=== PATIENT | female | born 1965 | race Caucasian/White ===

== ENCOUNTER 2020-05-18 19:10 | Emergency (ER) | payer BC ==
--- NOTE | 2020-05-18 19:51 | EDM.PDOC ---
ED HPI GENERAL MEDICAL PROBLEM - General Chief Complaint: Chest Pain Stated Complaint: CHEST PAIN Time Seen by Provider: 05/18/20 19:35 Source of Information: Reports: Patient History Limitations: Reports: No Limitations - History of Present Illness INITIAL COMMENTS - FREE TEXT/NARRATIVE: 55-year-old white female that presents with left-sided chest pain patient states just about the left upper breast. That is been going on for about 3 days now. She states the pain comes on for about 5 minutes with certain movements goes up from a 0 to an 8 out of 10 thing is completely goes away after about 5 minutes with rest. She states no change in position makes it worse or better She states pain radiates into her left shoulder blade. She describes it as a sharp stabbing. She denies any shortness of breath nausea vomiting dizziness or lightheadedness or sweating when it occurs She has no family history of coronary artery disease she does not have any risk factors no hypertension no diabetes no hyperlipidemia non-smoker States she has been doing fine eating drinking as normal with normal daily activities Duration: Day(s): Location: Reports: Chest Quality: Reports: Burning, Stabbing Severity: Severe Improves with: Reports: Rest Worsens with: Reports: Movement Associated Symptoms: Reports: Chest Pain. Denies: Confusion, Cough, cough w sputum, Diaphoresis, Fever/Chills, Headaches, Loss of Appetite, Malaise, Nausea/Vomiting, Seizure, Shortness of Breath, Syncope, Weakness Right side of chest through to the back Pain Score (Numeric/FACES): 5 - Related Data Allergies Allergy/AdvReac Type Severity Reaction Status Date / Time No Known Allergies Allergy Verified 05/18/20 19:51 Home Meds: Home Meds . [No Known Home Meds] 05/18/20 [History] ED ROS GENERAL - Review of Systems Review Of Systems: See Below Constitutional: Reports: No Symptoms HEENT: Reports: No Symptoms Respiratory: Reports: No Symptoms Cardiovascular: Reports: Chest Pain. Denies: No Symptoms, Blood Pressure Problem, Claudication, Dyspnea on Exertion, Edema, Lightheadedness, Orthopnea, Palpitations, PND, Syncope Endocrine: Reports: No Symptoms GI/Abdominal: Reports: No Symptoms : Reports: No Symptoms Musculoskeletal: Reports: No Symptoms Skin: Reports: No Symptoms Neurological: Reports: No Symptoms Psychiatric: Reports: No Symptoms Hematologic/Lymphatic: Reports: No Symptoms Immunologic: Reports: No Symptoms ED EXAM, GENERAL - Physical Exam Exam: See Below Exam Limited By: No Limitations General Appearance: Alert, WD/WN, No Apparent Distress Eye Exam: Bilateral Eye: EOMI, Normal Inspection Nose: Normal Inspection, Normal Mucosa Throat/Mouth: Normal Inspection, Normal Lips, Normal Teeth, Normal Gums, Normal Oropharynx, Normal Voice, No Airway Compromise Neck: Normal Inspection, Supple, Non-Tender, Full Range of Motion Respiratory/Chest: No Respiratory Distress, Lungs Clear, Normal Breath Sounds, No Accessory Muscle Use, Other (Positive tenderness palpation over the left lateral ribs with reproduction of the exact same type of pain per the patient when palpated between the costal margins). No: Chest Non-Tender Cardiovascular: Normal Peripheral Pulses, Regular Rate, Rhythm, No Edema, No Gallop, No JVD, No Murmur, No Rub GI/Abdominal: Normal Bowel Sounds, Soft, Non-Tender, No Organomegaly, No Distention, No Abnormal Bruit Back Exam: Normal Inspection, Full Range of Motion. No: Vertebral Tenderness Extremities: Normal Inspection, Normal Range of Motion, Non-Tender, No Pedal Edema, Normal Capillary Refill Neurological: Alert, Oriented, CN II-XII Intact, Normal Cognition, Normal Gait, Normal Reflexes, No Motor/Sensory Deficits Psychiatric: Normal Affect, Normal Mood Skin Exam: Warm, Dry, Intact, Normal Color, No Rash Lymphatic: No Adenopathy Course - Vital Signs Text/Narrative:: EKG normal sinus rhythm no acute findings patient is noted to be in no acute distress laughing during exam CBC BMP troponin EKG chest x-ray All labs are normal chest x-ray is negative We will give the patient 30 mg Toradol IV patient states she feels fine going home states she will follow-up with her primary care provider if changes she will return to the emergency room Patient was rechecked states she feels much better after the Toradol she is okay with disposition going home and follow-up Last Recorded V/S: Last Vital Signs Temp 36.6 C 05/18/20 20:01 Pulse 68 05/18/20 20:01 Resp 16 05/18/20 20:01 BP 139/79 05/18/20 20:01 Pulse Ox 97 05/18/20 20:01 - Orders/Labs/Meds Orders: Active Orders 24 hr Category Date Time Status Chest 1V Frontal [CR] Stat Exams 05/18/20 19:39 Taken Labs: Laboratory Tests 05/18/20 05/18/20 05/18/20 Range/Units 19:30 19:30 19:55 WBC 6.6 (4.0-10.0) x10^3/uL RBC 3.57 L (4.00-5.50) x10^6/uL Hgb 11.4 L (12.0-16.0) g/dL Hct 34.0 (33.0-47.0) % MCV 95.2 H (78.0-93.0) fL MCH 31.9 (26.0-32.0) pg MCHC 33.5 (32.0-36.0) g/dL RDW Coeff of Mikayla 12.3 (10.0-15.0) % Plt Count 187 (130-400) x10^3/uL Neut % (Auto) 59.1 (50.0-80.0) % Lymph % (Auto) 31.2 (25.0-50.0) % [place] % (Auto) 8.3 (2.0-11.0) % Eos % (Auto) 1.1 (0.0-4.0) % Baso % (Auto) 0.3 (0.2-1.2) % Sodium 141 (136-145) mmol/L Potassium 3.7 (3.5-5.1) mmol/L Chloride 103 (98-107) mmol/L Carbon Dioxide 27 (21-32) mmol/L Anion Gap 14.7 (10-20) mmol/L BUN 17 (7-18) mg/dL Creatinine 0.9 (0.55-1.02) mg/dL Est Cr Clr Drug Dosing TNP Estimated GFR (MDRD) > 60 Glucose 91 (74-106) mg/dL Calcium 8.7 (8.5-10.1) mg/dL POC Troponin I 0.01 (0.00-0.08) ng/mL Meds: Medications Discontinued Medications Generic Name Dose Route Start Last Admin Trade Name Freq PRN Reason Stop Dose Admin Ketorolac Tromethamine 30 mg 05/18/20 20:49 05/18/20 20:54 Toradol IVPUSH 05/18/20 20:50 30 mg ONETIME ONE Administration Departure - Departure Time of Disposition: 20:50 Disposition: Home, Self-Care 01 Condition: Good Clinical Impression: Non-cardiac chest pain Instructions: Nonspecific Chest Pain, Adult, [id number] Referrals: PCP,Unknown [Primary Care Provider] - Forms: ED Department Discharge Additional Instructions: Follow-up with your primary care provider in the next 24 to 48 hours Return to the emergency room if anything changes or gets worse Sepsis Event Note (ED) - Focused Exam Vital Signs: Vital Signs Temp Pulse Resp BP Pulse Ox 05/18/20 20:01 36.6 C 68 16 139/79 97 - Problem List & Annotations (1) Non-cardiac chest pain SNOMED Code(s): 902795270 Code(s): R07.89 - OTHER CHEST PAIN Status: Acute Current Visit: Yes - My Orders Last 24 Hours: My Active Orders 05/18/20 19:39 Chest 1V Frontal [CR] Stat - Assessment/Plan Last 24 Hours: My Active Orders 05/18/20 19:39 Chest 1V Frontal [CR] Stat
[2020-05-18 20:07] LABS: ANION GAP 14.7 mmol/L (10-20); CHLORIDE,CL 103 mmol/L (98-107); SODIUM,NA 141 mmol/L (136-145)
[2020-05-18] MEDS ORDERED: Ketorolac 30 MG/ML SDV IVPUSH ONE (20:49)
--- NOTE | 2020-05-19 08:03 | CR ---
[id number] RAD/RAD Chest PA or AP 1V EXAM: SINGLE VIEW CHEST. INDICATION: CHEST PAIN FEVER COMPARISON: NO PREVIOUS SIMILAR EXAM IS AVAILABLE FINDINGS: The lungs are clear The cardiomediastinal contour is normal IMPRESSION: NO PNEUMONIA Ezra Matute MD 05/19/20 0801 Thank you for allowing us to participate in the care of your patient.
== END 2020-05-18 21:45 | disposition home or self-care (01) ==
LOC: SUPCPDRO 19:10 → VM.ED 19:10
DX: R07.89 Other chest pain (principal)
CPT/HCPCS: 71045; 80048; 84484; 85025; 93005; 96374; 99285; J1885

== ENCOUNTER 2020-11-28 17:39 | Emergency (ER) | payer OTHER, BC ==
[2020-11-28] MEDS ORDERED: Sodium Chloride 0.9% 10 ML Syringe FLUSH PRN (17:51)
--- NOTE | 2020-11-28 18:06 | EDM.PDOC ---
ED HPI GENERAL MEDICAL PROBLEM - General Chief Complaint: Chest Pain Stated Complaint: CHEST PAIN Time Seen by Provider: 11/28/20 17:50 Source of Information: Reports: Patient History Limitations: Reports: No Limitations - History of Present Illness INITIAL COMMENTS - FREE TEXT/NARRATIVE: Pt. presents to ER with complaints of respirophasic chest discomfort in area of L breast. States the discomfort is intermittent in nature, and radiates into L back/scapula area. No radiation into jaw, arms, or neck. Pt. has a history of this in the past and was seen in this ER in April for the same, diagnosed with what sounds like atypical chest pain. Cardiac workup was negative. Pt. States that she has been experiencing the discomfort for several days. She states it is worse with palpation of the chest. Pt. denies any cough. No chest congestion. No fever or chills. No nausea, vomiting, or diarrhea. No rashes. Denies any diaphoresis, palpitations, or lightheadedness. Denies any acute injury to the chest. Has not been near any ill contacts. Denies history of CAD, respiratory illness, smoking, hypertension, dyslipidemia. She is not on HRT. Denies any history of hypercoagulability or blood clots in the past. She does have a history of chronic back pain that she feels may be contributing to the discomfort. Identifies Grzegorz Ludwig PA-C as her PCP. She states that she took tylenol at approx. 11:00AM today which did not help. Onset Date: 11/25/20 Duration: Intermittent Location: Reports: Chest, Back Quality: Reports: Sharp Severity: Moderate Associated Symptoms: Reports: Chest Pain. Denies: Confusion, Cough, cough w sputum, Diaphoresis, Fever/Chills, Headaches, Loss of Appetite, Malaise, Nausea/Vomiting, Rash, Seizure, Shortness of Breath, Syncope, Weakness Treatments MANAGER INSTRUMENTATION: Reports: Acetaminophen Left Upper Chest Pain Score (Numeric/FACES): 7 - Related Data Allergies Allergy/AdvReac Type Severity Reaction Status Date / Time No Known Allergies Allergy Verified 11/28/20 17:44 Home Meds: Home Meds . [No Known Home Meds] 05/18/20 [History] Past Medical History - Past Surgical History GI Surgical History: Reports: Cholecystectomy Female Surgical History: Reports: Breast Reduction Musculoskeletal Surgical History: Reports: Shoulder Surgery, Other (See Below) Other Musculoskeletal Surgeries/Procedures:: Surgery to both a knee and a foot Social & Family History - Tobacco Use Tobacco Use Status *Q: Never Tobacco User - Recreational Drug Use Recreational Drug Use: No ED ROS GENERAL - Review of Systems Review Of Systems: See Below Constitutional: Reports: No Symptoms HEENT: Reports: No Symptoms Respiratory: Reports: Pleuritic Chest Pain Cardiovascular: Reports: Chest Pain. Denies: Claudication, Dyspnea on Exertion, Edema, Lightheadedness, Orthopnea, Palpitations, PND Endocrine: Reports: No Symptoms GI/Abdominal: Reports: No Symptoms : Reports: No Symptoms Musculoskeletal: Reports: Back Pain Skin: Reports: No Symptoms Neurological: Reports: No Symptoms Psychiatric: Reports: No Symptoms Hematologic/Lymphatic: Reports: No Symptoms Immunologic: Reports: No Symptoms ED EXAM, GENERAL - Physical Exam Exam: See Below Exam Limited By: No Limitations General Appearance: Alert, WD/WN, No Apparent Distress Throat/Mouth: Normal Inspection, Normal Lips, Normal Oropharynx, Normal Voice, No Airway Compromise Head: Atraumatic, Normocephalic Respiratory/Chest: No Respiratory Distress, Lungs Clear, No Accessory Muscle Use, Other (Pain reproducible with AP palpation/compression of the L anterior chest.) Cardiovascular: Normal Peripheral Pulses, Regular Rate, Rhythm, No Edema Peripheral Pulses: 4+: Radial (L) GI/Abdominal: Soft, Non-Tender, No Organomegaly, No Distention, No Mass (Female) Exam: Deferred Rectal (Female) Exam: Deferred Back Exam: Normal Inspection, Full Range of Motion Extremities: Normal Inspection, Normal Range of Motion, Non-Tender, No Pedal Epifanio ma, Normal Capillary Refill Neurological: Alert, Oriented, CN II-XII Intact, Normal Cognition, Normal Gait Psychiatric: Normal Affect, Normal Mood Skin Exam: Warm, Dry, Intact, Normal Color, No Rash Lymphatic: No Adenopathy Course - Vital Signs Last Recorded V/S: Last Vital Signs Temp 36.6 C 11/28/20 17:45 Pulse 64 11/28/20 18:45 Resp 16 11/28/20 18:45 BP 125/70 11/28/20 18:45 Pulse Ox 95 11/28/20 18:45 - Orders/Labs/Meds Orders: Active Orders 24 hr Category Date Time Status EKG Documentation Completion [RC] STAT Care 11/28/20 17:51 Active PE Chest [Ang Chest] [CT] Stat Exams 11/28/20 18:37 Taken CORONAVIRUS COVID-19 PCR PHL Stat Lab 11/28/20 18:11 Ordered Sodium Chloride 0.9% [Saline Flush] Med 11/28/20 17:51 Active 10 ml FLUSH ASDIRECTED PRN Peripheral IV Insertion Adult [OM.PC] Routine Oth 11/28/20 17:52 Ordered Medication Orders Sodium Chloride (Saline Flush) 10 ml FLUSH ASDIRECTED PRN PRN Reason: Keep Vein Open Labs: Laboratory Tests 11/28/20 11/28/20 11/28/20 Range/Units 17:57 18:06 18:06 WBC 4.7 (4.0-10.0) x10^3/uL RBC 3.85 L (4.00-5.50) x10^6/uL Hgb 12.2 (12.0-16.0) g/dL Hct 36.3 (33.0-47.0) % MCV 94.3 H (78.0-93.0) fL MCH 31.7 (26.0-32.0) pg MCHC 33.6 (32.0-36.0) g/dL RDW Coeff of Mikayla 12.2 (10.0-15.0) % Plt Count 215 (130-400) x10^3/uL Neut % (Auto) 49.0 L (50.0-80.0) % Lymph % (Auto) 38.9 (25.0-50.0) % [place] % (Auto) 10.0 (2.0-11.0) % Eos % (Auto) 1.7 (0.0-4.0) % Baso % (Auto) 0.4 (0.2-1.2) % PT 11.0 (9.5-12.3) SEC INR 1.0 L (2.0-3.5) APTT 27.3 (25.6-32.8) SEC D-Dimer, Quantitative 0.74 H (<=0.58) mg/LFEU Sodium (136-145) mmol/L Potassium (3.5-5.1) mmol/L Chloride (98-107) mmol/L Carbon Dioxide (21-32) mmol/L Anion Gap (10-20) mmol/L BUN (7-18) mg/dL Creatinine (0.55-1.02) mg/dL Est Cr Clr Drug Dosing mL/min Estimated GFR (MDRD) Glucose (74-106) mg/dL Calcium (8.5-10.1) mg/dL Corrected Calcium (8.5-10.1) mg/dL Magnesium (1.8-2.4) mg/dL Total Bilirubin (0.2-1.0) mg/dL AST (15-37) U/L ALT (14-59) U/L Alkaline Phosphatase (46-116) U/L Troponin I (<=0.056) ng/mL C-Reactive Protein (<=0.9) mg/dL NT-Pro-B Natriuret Pep (<=125) pg/mL Total Protein (6.4-8.2) g/dL Albumin (3.4-5.0) g/dL Globulin Albumin/Globulin Ratio SARS CoV-2 RNA Rapid LARRY Negative (NEGATIVE) 11/28/20 Range/Units 18:06 WBC (4.0-10.0) x10^3/uL RBC (4.00-5.50) x10^6/uL Hgb (12.0-16.0) g/dL Hct (33.0-47.0) % MCV (78.0-93.0) fL MCH (26.0-32.0) pg MCHC (32.0-36.0) g/dL RDW Coeff of Mikayla (10.0-15.0) % Plt Count (130-400) x10^3/uL Neut % (Auto) (50.0-80.0) % Lymph % (Auto) (25.0-50.0) % [place] % (Auto) (2.0-11.0) % Eos % (Auto) (0.0-4.0) % Baso % (Auto) (0.2-1.2) % PT (9.5-12.3) SEC INR (2.0-3.5) APTT (25.6-32.8) SEC D-Dimer, Quantitative (<=0.58) mg/LFEU Sodium 142 (136-145) mmol/L Potassium 3.6 (3.5-5.1) mmol/L Chloride 105 (98-107) mmol/L Carbon Dioxide 27 (21-32) mmol/L Anion Gap 13.6 (10-20) mmol/L BUN 16 (7-18) mg/dL Creatinine 0.8 (0.55-1.02) mg/dL Est Cr Clr Drug Dosing 58.55 mL/min Estimated GFR (MDRD) > 60 Glucose 93 (74-106) mg/dL Calcium 8.6 (8.5-10.1) mg/dL Corrected Calcium 8.84 (8.5-10.1) mg/dL Magnesium 2.2 (1.8-2.4) mg/dL Total Bilirubin 0.3 (0.2-1.0) mg/dL AST 23 (15-37) U/L ALT 23 (14-59) U/L Alkaline Phosphatase 95 (46-116) U/L Troponin I < 0.017 (<=0.056) ng/mL C-Reactive Protein 0.3 (<=0.9) mg/dL NT-Pro-B Natriuret Pep 99 (<=125) pg/mL Total Protein 7.3 (6.4-8.2) g/dL Albumin 3.7 (3.4-5.0) g/dL Globulin 3.6 Albumin/Globulin Ratio 1.03 SARS CoV-2 RNA Rapid LARRY (NEGATIVE) Meds: Medications Generic Name Dose Route Start Last Admin Trade Name Richa PRN Reason Stop Dose Admin Sodium Chloride 10 ml 11/28/20 17:51 Saline Flush FLUSH ASDIRECTED PRN Keep Vein Open Discontinued Medications Generic Name Dose Route Start Last Admin Trade Name Richa PRN Reason Stop Dose Admin Doxycycline Monohydrate 1 packet 11/28/20 19:43 Take Home: Doxycycline 100 Mg, 4 Tab Pack PO 11/28/20 19:44 ONETIME ONE Iopamidol 100 ml 11/28/20 19:15 11/28/20 19:15 Isovue-300 (61%) IVPUSH 11/28/20 19:16 100 ml ONETIME ONE Administration Ketorolac Tromethamine 15 mg 11/28/20 19:42 Toradol IVPUSH 11/28/20 19:43 ONETIME ONE Methylprednisolone Sodium Succinate 125 mg 11/28/20 19:42 Solu-Medrol IVPUSH 11/28/20 19:43 ONETIME ONE - Radiology Interpretation Free Text/Narrative:: CTA chest obtained, negative for acute PE. Mild bilateral lower lobe groundglass opacities of unclear etiology. Departure - Departure Time of Disposition: 19:56 Disposition: Home, Self-Care 01 Clinical Impression: Atypical chest pain - Discharge Information Instructions: Doxycycline tablets or capsules, Nonspecific Chest Pain, Adult, [id number], Prednisone tablets, Probiotics Referrals: PCP,Not In Area [Primary Care Provider] - Forms: ED Department Discharge Additional Instructions: Doxycycline 100mg 1 twice daily for 10 days Prednisone 20mg 2 tabs daily for 5 days starting tomorrow. Drink plenty of fluids Ibuprofen 200mg 3 tabs every 6 hours as needed for pain Return to ER if increased shortness of breath. Recheck in clinic in 10-14 days Sepsis Event Note (ED) - Evaluation Sepsis Screening Result: No Definite Risk - Focused Exam Vital Signs: Vital Signs Temp Pulse Resp BP Pulse Ox 11/28/20 18:45 64 16 125/70 95 11/28/20 18:16 63 18 119/67 97 11/28/20 17:45 36.6 C 67 18 123/72 97 - Problem List Review Problem List Initiated/Reviewed/Updated: Yes - My Orders Last 24 Hours: My Active Orders 11/28/20 17:51 EKG Documentation Completion [RC] STAT Sodium Chloride 0.9% [Saline Flush] 10 ml FLUSH ASDIRECTED PRN 11/28/20 17:52 Peripheral IV Insertion Adult [OM.PC] Routine 11/28/20 18:11 CORONAVIRUS COVID-19 PCR PHL Stat 11/28/20 18:37 PE Chest [Ang Chest] [CT] Stat - Assessment/Plan Last 24 Hours: My Active Orders 11/28/20 17:51 EKG Documentation Completion [RC] STAT Sodium Chloride 0.9% [Saline Flush] 10 ml FLUSH ASDIRECTED PRN 11/28/20 17:52 Peripheral IV Insertion Adult [OM.PC] Routine 11/28/20 18:11 CORONAVIRUS COVID-19 PCR PHL Stat 11/28/20 18:37 PE Chest [Ang Chest] [CT] Stat Plan: Doxycycline 100mg 1 twice daily for 10 days Prednisone 20mg 2 tabs daily for 5 days starting tomorrow. Drink plenty of fluids Ibuprofen 200mg 3 tabs every 6 hours as needed for pain Return to ER if increased shortness of breath. Recheck in clinic in 10-14 days
[2020-11-28 18:33] LABS: PTT,PARTIAL THROMBOPLSTIN TIME 27.3 SEC (25.6-32.8)
[2020-11-28 18:38] LABS: CHLORIDE,CL 105 mmol/L (98-107); SODIUM,NA 142 mmol/L (136-145)
[2020-11-28 18:39] LABS: ANION GAP 13.6 mmol/L (10-20)
[2020-11-28] MEDS ORDERED: Iopamidol 612 MG/ML 100 ML Bottle IVPUSH ONE (19:15)
[2020-11-28] MEDS ORDERED: methylPREDNISolone Sodium Succinate 125 MG/2 ML SDV IVPUSH ONE (19:42)
[2020-11-28] MEDS ORDERED: Ketorolac 15 MG/ML SDV IVPUSH ONE (19:42)
[2020-11-28] MEDS ORDERED: Take Home: Doxycycline 100 MG Tab, 4 Tab Pack PO ONE (19:43)
--- NOTE | 2020-12-01 09:19 | CT ---
[id number] CT/CTA Chest EXAM: CT ANGIOGRAM CHEST INDICATION: CHEST PAIN/ POSITIVE D- DIMER COMPARISON: None. DISCUSSION: The pulmonary arteries are normal in appearance with no emboli identified. There are mild groundglass opacities scattered throughout both lungs which are most prominent in the lower lobes bilaterally. These findings could be from incomplete inspiration, edema, small airway disease or infection. Mild cardiomegaly. No effusions. No thoracic adenopathy. Prior cholecystectomy. Degenerative changes in the spine. IMPRESSION: 1. Negative for pulmonary embolism. 2. Mild bilateral lower lobe predominant groundglass opacities are nonspecific, but could be seen with small airway disease, incomplete inspiration, edema or infection. Sy Dupont MD 12/01/20 0918 Thank you for allowing us to participate in the care of your patient.
== END 2020-11-28 20:13 | disposition home or self-care (01) ==
LOC: VM.ED 17:39
DX: R07.89 Other chest pain (principal); Z20.822 Contact with and (suspected) exposure to COVID-19
CPT/HCPCS: 71275; 80053; 83735; 83880; 84484; 85025; 85379; 85610; 85730; 86140; 93005; 96374; 96375; 99284; 99285-25; A9270-GY; J1885; J2930; Q9967; U0002

== ENCOUNTER 2024-01-10 17:37 | Emergency (ER) | payer BC ==
[2024-01-10 18:14] LABS: BASOPHILS PERCENT AUTO 0.6 % (0.2-1.2); EOSINOPHILS ABSOLUTE AUTO 0.1 x10^3/uL (0.0-0.5); EOSINOPHILS PERCENT AUTO 1.8 % (0.0-4.0); HEMATOCRIT 38.2 % (33.0-47.0); IMMATURE GRAN ABSOLUTE AUTO 0.01 x10^3/uL (0.00-0.07); LYMPHOCYTES PERCENT AUTO 40.4 % (25.0-50.0); MEAN CORPUSCULAR HEMOGLOBIN 31.8 pg (26.0-32.0); MEAN CORPUSCULAR VOLUME 93.4 fL (78.0-93.0); MONOCYTES ABSOLUTE AUTO 0.4 x10^3/uL (0.0-0.8); MONOCYTES PERCENT AUTO 7.9 % (2.0-11.0); NEUTROPHILS ABSOLUTE AUTO 2.5 x10^3/uL (1.8-7.7); NEUTROPHILS PERCENT AUTO 49.1 % (50.0-80.0); PLATELET COUNT,PLT 215 x10^3/uL (130-400); RED BLOOD CELL COUNT 4.09 x10^6/uL (4.00-5.50); WHITE BLOOD CELL COUNT,WBC 5.1 x10^3/uL (4.0-10.0)
[2024-01-10 18:27] LABS: A/G RATIO 1.06; ALANINE AMINOTRANSFERASE,ALT 19 U/L (14-59); ALBUMIN 3.8 g/dL (3.4-5.0); ALKALINE PHOSPHATASE 99 U/L (46-116); ANION GAP 14.6 mmol/L (5-15); ASPARTATE AMNIOTRANSFERASE,AST 25 U/L (15-37); BILIRUBIN TOTAL 0.3 mg/dL (0.2-1.0); BLOOD UREA NITROGEN,BUN 12 mg/dL (7-18); C-REACTIVE PROTEIN < 0.50 mg/dL (<=0.50); CALCIUM 9.3 mg/dL (8.5-10.1); CARBON DIOXIDE,CO2 29 mmol/L (21-32); CHLORIDE,CL 102 mmol/L (98-107); CREATININE 0.8 mg/dL (0.55-1.02); ESTIMATED GFR 84 mL/min (>=60); GLUCOSE RANDOM 94 mg/dL (70-99); POTASSIUM,K 3.6 mmol/L (3.5-5.1); PROTEIN TOTAL,TP 7.4 g/dL (6.4-8.2); SODIUM,NA 142 mmol/L (136-145)
[2024-01-10] MEDS: Sodium Chloride 0.9% 1,000 ML IV ONE (18:36)
[2024-01-10] MEDS: Acetaminophen 325 MG Tab PO ONE (18:36)
[2024-01-10 18:48] LABS: CORONAVIRUS COVID-19 NAA NEGATIVE (NEGATIVE); INFLUENZA A NAA NEGATIVE (NEGATIVE); INFLUENZA B NAA NEGATIVE (NEGATIVE); RESPIRATORY SYNCYTIAL VIR NAA NEGATIVE (NEGATIVE)
[2024-01-10 19:20] LABS: APPEARANCE,URINE CLEAR (CLEAR); BILIRUBIN,URINE NEGATIVE (NEGATIVE); COLOR,URINE YELLOW (YELLOW); GLUCOSE,URINE NEGATIVE (NEGATIVE); KETONES,URINE NEGATIVE (NEGATIVE); LEUKOCYTE ESTERASE,URINE NEGATIVE (NEGATIVE); NITRITE,URINE NEGATIVE (NEGATIVE); OCCULT BLOOD,URINE NEGATIVE (NEGATIVE); PROTEIN,URINE NEGATIVE (NEGATIVE); UROBILINOGEN,URINE 0.2 EU/dL (0.2)
== END 2024-01-10 19:42 | disposition home or self-care (01) ==
LOC: VM.ED 17:37
DX: G44.209 Tension-type headache, unspecified, not intractable (principal); B34.9 Viral infection, unspecified; Z88.8 Allergy status to other drugs, medicaments and biological substances
CPT/HCPCS: 0241U; 80053; 81003; 85025; 86140; 96360; 99284-25; A9270-GY; J7030

== ENCOUNTER 2025-02-01 13:49 | Emergency (ER) | payer BC ==
[2025-02-01 14:14] LABS: BASOPHILS PERCENT AUTO 0.1 % (0.2-1.2); EOSINOPHILS ABSOLUTE AUTO 0.1 x10^3/uL (0.0-0.5); EOSINOPHILS PERCENT AUTO 0.7 % (0.0-4.0); HEMATOCRIT 34.5 % (33.0-47.0); HEMOGLOBIN 11.7 g/dL (12.0-16.0); LYMPHOCYTES ABSOLUTE AUTO 1.6 x10^3/uL (1.0-4.8); LYMPHOCYTES PERCENT AUTO 23.4 % (25.0-50.0); MEAN CORPUSCULAR HEMOGLOBIN 31.9 pg (26.0-32.0); MEAN CORPUSCULAR HGB CONC 33.9 g/dL (32.0-36.0); MONOCYTES ABSOLUTE AUTO 0.4 x10^3/uL (0.0-0.8); MONOCYTES PERCENT AUTO 6.4 % (2.0-11.0); NEUTROPHILS ABSOLUTE AUTO 4.7 x10^3/uL (1.8-7.7); NEUTROPHILS PERCENT AUTO 69.4 % (50.0-80.0); PLATELET COUNT,PLT 215 x10^3/uL (130-400); RED BLOOD CELL COUNT 3.67 x10^6/uL (4.00-5.50); WHITE BLOOD CELL COUNT,WBC 6.8 x10^3/uL (4.0-10.0)
[2025-02-01 14:31] LABS: A/G RATIO 1.06; ALBUMIN 3.5 g/dL (3.4-5.0); ANION GAP 13.5 mmol/L (5-15); BILIRUBIN TOTAL 0.4 mg/dL (0.2-1.0); CREATININE 0.8 mg/dL (0.55-1.02); EST CRCL DRUG DOSING (CG) 55.02 mL/min; MAGNESIUM 1.9 mg/dL (1.8-2.4); POTASSIUM,K 3.5 mmol/L (3.5-5.1); PROTEIN TOTAL,TP 6.8 g/dL (6.4-8.2)
== END 2025-02-01 14:51 | disposition home or self-care (01) ==
LOC: VM.ED 13:49 → SUPCPDRO 13:49 → VM.ED 14:51
DX: B34.9 Viral infection, unspecified (principal); Z88.8 Allergy status to other drugs, medicaments and biological substances; Z79.84 Long term (current) use of oral hypoglycemic drugs; Z79.899 Other long term (current) drug therapy; Z90.49 Acquired absence of other specified parts of digestive tract
CPT/HCPCS: 36415; 80053; 83735; 85025; 87428-QW; 99283; 99284

== ENCOUNTER 2025-06-25 12:01 | Emergency (ER) | payer BC ==
[2025-06-25 12:18] LABS: BASOPHILS ABSOLUTE AUTO 0.0 x10^3/uL (0.0-0.2); BASOPHILS PERCENT AUTO 0.4 % (0.2-1.2); EOSINOPHILS ABSOLUTE AUTO 0.1 x10^3/uL (0.0-0.5); EOSINOPHILS PERCENT AUTO 1.4 % (0.0-4.0); IMMATURE GRAN ABSOLUTE AUTO 0.00 x10^3/uL (0.00-0.07); IMMATURE GRAN PERCENT AUTO 0.00 % (0.00-0.43); LYMPHOCYTES ABSOLUTE AUTO 1.6 x10^3/uL (1.0-4.8); LYMPHOCYTES PERCENT AUTO 32.0 % (25.0-50.0); MONOCYTES ABSOLUTE AUTO 0.3 x10^3/uL (0.0-0.8); MONOCYTES PERCENT AUTO 6.5 % (2.0-11.0); NEUTROPHILS ABSOLUTE AUTO 3.0 x10^3/uL (1.8-7.7); NEUTROPHILS PERCENT AUTO 59.7 % (50.0-80.0); PLATELET COUNT,PLT 234 x10^3/uL (130-400); RED BLOOD CELL COUNT 3.89 x10^6/uL (4.00-5.50); WHITE BLOOD CELL COUNT,WBC 5.1 x10^3/uL (4.0-10.0)
[2025-06-25 12:40] LABS: A/G RATIO 1.00; ALANINE AMINOTRANSFERASE,ALT 12 U/L (14-59); ASPARTATE AMNIOTRANSFERASE,AST 22 U/L (15-37); BILIRUBIN TOTAL 0.4 mg/dL (0.2-1.0); BLOOD UREA NITROGEN,BUN 18 mg/dL (7-18); CARBON DIOXIDE,CO2 30 mmol/L (21-32); CHLORIDE,CL 102 mmol/L (98-107); CREATININE 0.7 mg/dL (0.55-1.02); EST CRCL DRUG DOSING (CG) 62.88 mL/min; GLUCOSE RANDOM 109 mg/dL (70-99); POTASSIUM,K 3.7 mmol/L (3.5-5.1); PROTEIN TOTAL,TP 7.2 g/dL (6.4-8.2); SODIUM,NA 142 mmol/L (136-145)
[2025-06-25 12:41] LABS: ESTIMATED GFR 98 mL/min (>=60)
== END 2025-06-25 13:24 | disposition home or self-care (01) ==
LOC: VM.ED 12:01 → SUPCPDRO 12:01 → VM.ED 13:24
DX: R20.2 Paresthesia of skin (principal); R07.89 Other chest pain; Z79.899 Other long term (current) drug therapy; Z88.8 Allergy status to other drugs, medicaments and biological substances
CPT/HCPCS: 71045; 80053; 84484; 85025; 93005; 93010; 99284; 99285